=== PATIENT | female | born 1970 | race Caucasian/White ===

== ENCOUNTER 2018-02-02 16:47 | Emergency (ER) | payer MEDICAID, SELFPAY ==
[2018-02-02 16:51] VITALS: BP 122/72; PULSE 90; PULSE 97; RESP 18; TEMP 36.3; O2SAT 98; BMI 37.5
[2018-02-02 18:54] VITALS: RESP 16; O2SAT 98
--- NOTE | 2018-02-02 19:17 | ED.VISSUMM ---
- ER Visit Summary Date of Service: 02/02/18 Chief Complaint: Dental pain History of Present Illness: The patient is a 47 F presenting with dental pain. She states this has been ongoing for the past week. She states her dentist was out of town and she saw [facility] on Tuesday. She was started on clindamycin. States her pain has continued and now she has swelling right lower jaw. She saw her dentist today and was advised to come to the ED for evaluation. She has been taking ibuprofen and Tylenol at home. Physical Examination: Vitals are stable. Patient is afebrile. Alert no acute distress. HEENT exam right lower mandible swelling. No intraoral fluctuance. Right lower molar tender to palpation. No sublingual edema. Neck is supple. Lungs are clear and equal bilaterally. Heart is regular rate and rhythm. Extremities are unremarkable. Skin is warm and dry. No focal neurologic deficit. Remainder of exam is unremarkable. Emergency Department Course and Treatment: Patient was given Unasyn IV. She is given Morphine, Zofran IV. She is feeling improved. She feels symptoms are worsening on clindamycin. She is given a prescription for Augmentin. She is advised to follow up with her dentist. Advised return to the ED for worsening complaints. Disposition: Discharge home Impression: Dental infection This note was generated with [employer] dictation software. It may contain incorrect words, spelling, and punctuation that were not noted in review of the chart prior to signing ED Disposition - Plan for ED Patient: Chief Complaint: Dental Instructions: ED Tooth Pain Prescriptions: Hydrocodone Bitart/Apap 5-325 [[place] 5MG-325MG] 1 tablet PO Q6H PRN PRN 3 Days #10 tablet PRN Reason: Pain Amox/Clavulanate Tablet [Augmentin Tablet] 875 mg PO Q12H #20 tablet Referrals: Radha Soriano [Primary Care Provider] -
[2018-02-02] MEDS: morphine 8 MG/ML Syringe IV (19:32)
[2018-02-02] MEDS: Ondansetron 4 MG/2 ML Vial IV (19:32)
[2018-02-02 20:04] VITALS: RESP 16; O2SAT 98
[2018-02-02] MEDS: Morphine 4 MG/ML Syringe IV (20:53)
--- NOTE | 2018-02-02 21:15 | ED.DEP ---
ED Disposition - Plan for ED Patient: Chief Complaint: Dental Instructions: ED Tooth Pain Prescriptions: Hydrocodone Bitart/Apap 5-325 [[place] 5MG-325MG] 1 tablet PO Q6H PRN PRN 3 Days #10 tablet PRN Reason: Pain Amox/Clavulanate Tablet [Augmentin Tablet] 875 mg PO Q12H #20 tablet Referrals: Radha Soriano [Primary Care Provider] -
[2018-02-02 21:27] VITALS: BP 120/73; PULSE 90; RESP 18; O2SAT 97
== END 2018-02-02 21:34 | disposition home or self-care (01) ==
LOC: ED 19:11
PROVIDERS: Emergency Provider Emergency Medicine; Family Provider Internal Medicine; PCP Internal Medicine
DX: K04.7 Periapical abscess without sinus (principal)
CPT/HCPCS: 96365; 96375; 96376; 99285; J7050; A4216; J0295; J2405